=== PATIENT | female | born 1990 | race American Indian/Alaskan Native ===

== ENCOUNTER 2019-01-03 20:41 | Emergency (ER) | payer OTHER ==
--- NOTE | 2019-01-03 21:30 | Emergency Department Report ---
Blank Doc - Documentation Documentation: RASH TO CHEST AND ARMS PRURITIC AND BLISTERING. STARTED NEW JOB AT [employer] AND JOANNA MARSHALL
[2019-01-03 21:54] LABS: Basophils % (Auto) 0.5 % (0.0-1.8); Eosinophils # (Auto) 0.1 K/mm3 (0.0-0.4); Hematocrit 35.8 % (30.3-42.9); Lymphocytes # (Auto) 2.2 K/mm3 (1.2-5.4); Lymphocytes % (Auto) 49.4 % (13.4-35.0); Mean Corpuscular HGB Conc 34 % (30-34); Mean Corpuscular Volume 85 fl (79-97); Monocytes # (Auto) 0.5 K/mm3 (0.0-0.8); Monocytes % (Auto) 11.6 % (0.0-7.3); Platelet Count 195 K/mm3 (140-440); Red Blood Count 4.22 M/mm3 (3.65-5.03); Red Cell Distribution Width 16.1 % (13.2-15.2)
[2019-01-03 22:13] LABS: Alanine Aminotransferase 8 units/L (7-56); Albumin 4.3 g/dL (3.9-5); BUN/Creatinine Ratio 15; Blood Urea Nitrogen 12 mg/dL (7-17); Calcium 9.5 mg/dL (8.4-10.2); Hemolysis Index 8
[2019-01-03 22:45] LABS: Erythrocyte Sedimentation Rate 21 mm/Hr (0-20)
[2019-01-03] MEDS ORDERED: DELTASONE PO ONE (23:44)
--- NOTE | 2019-01-03 23:44 | Emergency Department Report ---
ED Rash HPI - HPI Chief Complaint: Skin Rash Stated Complaint: BODY RASH/BLISTERS Time Seen by Provider: 01/03/19 21:27 Duration: 3 Days Rash Symptoms: Yes Itching, Yes Blistering Other History: 28-year-old -Citizen Of [place] female comes in for a 3 day history of a rash that is on her chest and on both arms. Patient denies any history of rashes. Patient denies any foods or new detergents or new clothes. Patient does admit to sprain a lot of weighed at her home for naps. 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 ED Review of Systems ROS: Stated complaint: BODY RASH/BLISTERS Other details as noted in HPI Comment: All other systems reviewed and negative Skin: rash, pruritus ED Past Medical Hx - Social History Smoking Status: Never Smoker - Medications Home Medications: Home Medications Medication Instructions Recorded Confirmed Last Taken Type Sulfamethoxazole/Trimethoprim 1 each PO BID #20 tablet 01/03/19 Unknown Rx [Bactrim DS TAB] Triamcinolone 0.5% [Kenalog 0.5% 1 applic TP TID #1 tube 01/03/19 Unknown Rx CREAM] Famotidine [Pepcid] 20 mg PO BID #14 tablet 01/04/19 Unknown Rx predniSONE [Deltasone] 50 mg PO QDAY #4 tab 01/04/19 Unknown Rx Rash Exam - Exam General: Vital signs noted. No distress. Alert and acting appropriately. HEENT: No Periorbital Edema, No Conjuctival Injection, No Chemosis, No Perioral Edema, No Tongue Edema, No Uvular Edema, No Compromised Airway, No Drooling Lungs: Yes Good Air Exchange (Normal Breath Sounds), No Wheezes, No Ronchi, No Stridor, No Cough, No Labored Respirations, No Retractions, No Use of Accessory Muscles, No Other Abnormal Lung Sounds Heart: Yes Regular, No Murmur Skin: Yes Excoriations, Yes Erythema, Yes Other (blisters) ED Course Vital Signs 01/03/19 01/03/19 20:47 21:22 Temperature 98.3 F 98.3 F Pulse Rate 81 94 H Respiratory 18 18 Rate Blood Pressure 144/98 144/98 O2 Sat by Pulse 99 99 Oximetry ED Medical Decision Making - Lab Data Result diagrams: 01/03/19 21:39 01/03/19 21:39 - Medical Decision Making -year-old female comes in with a blistery itchy rash for 3 days. Patient be given Pepcid 40 mg, Benadryl and prednisone. Patient be discharged home with triamcinolone Pepcid Benadryl Bactrim and prednisone. Patient is referred to development coordinator. Critical care attestation.: If time is entered above; I have spent that time in minutes in the direct care of this critically ill patient, excluding procedure time. ED Disposition Clinical Impression: Rash and nonspecific skin eruption Blister of left shoulder and upper arm Qualifiers: Encounter type: initial encounter Qualified Code(s): S40.222A - Blister (nonthermal) of left shoulder, initial encounter; S40.822A - Blister (nonthermal) of left upper arm, initial encounter Disposition: TO HOME OR SELFCARE Is pt being admited?: No Does the pt Need Aspirin: No Condition: Stable Instructions: Acute Rash (ED) Additional Instructions: Take antibiotics as prescribed these creams and prednisone as prescribed. Follow-up with a development coordinator if her symptoms persist or gets worse. Prescriptions: Sulfamethoxazole/Trimethoprim [Bactrim DS TAB] 1 each PO BID #20 tablet predniSONE [Deltasone] 50 mg PO QDAY #4 tab Triamcinolone 0.5% [Kenalog 0.5% CREAM] 1 applic TP TID #1 tube Famotidine [Pepcid] 20 mg PO BID #14 tablet Referrals: JANE LAKE MD [Staff Physician] - 3-5 Days Forms: Work/School Release Form(ED)
[2019-01-04] MEDS ORDERED: PEPCID PO ONE (00:20)
[2019-01-04 00:56] VITALS: BP 129/79
== END 2019-01-04 00:56 | disposition home or self-care (01) ==
LOC: ED 20:41
DX: S40.822A Blister (nonthermal) of left upper arm, initial encounter (principal); X58.XXXA Exposure to other specified factors, initial encounter; Y93.89 Activity, other specified; Y92.89 Other specified places as the place of occurrence of the external cause; Y99.8 Other external cause status
CPT/HCPCS: 36415; 80053; 85025; 85652; 99283; J7512